=== PATIENT | female | born 1970 | race Caucasian/White ===

== ENCOUNTER 2019-12-14 14:39 | Outpatient (CLI) | payer OTHER, SELFPAY ==
--- NOTE | ~2019-12-14 | MM_ITS ---
EXAMINATION: MM screening [facility] BI w ari HISTORY: Screening mammogram TECHNIQUE: Craniocaudal and mediolateral oblique 3-D tomosynthesis images were obtained and synthetic 2-D images were generated. CAD analysis was submitted and interpreted. COMPARISON: 06/25/2018, 01/17/2016, 08/17/2014 BREAST PARENCHYMAL COMPOSITION: There are scattered areas of fibroglandular density. FINDINGS: RIGHT BREAST: There is no evidence of suspicious mass, calcification, or architectural distortion to suggest malignancy. There has been no significant interval change. LEFT BREAST: There is a possible mass of the lower-outer breast best appreciated in the posterior thi rd of the breast 12 cm from the nipple on craniocaudal tomosynthesis image 17/80. IMPRESSION: 1. Possible left breast mass. 2. Additional mammographic views and possible breast ultrasound are recommended. BI-RADS Category 0: Incomplete: Needs additional imaging evaluation. Reviewed, dictated and finalized at location A. STITCH BINDER IMPRESSION: 1. Possible left breast mass. 2. Additional mammographic views and possible breast ultrasound are recommended . BI-RADS Category 0: Incomplete: Needs additional imaging evaluation.
== END 2019-12-14 14:40 | disposition home or self-care (01) ==
DX: Z12.31 Encounter for screening mammogram for malignant neoplasm of breast (principal); R92.8 Other abnormal and inconclusive findings on diagnostic imaging of breast
CPT/HCPCS: 77063; 77067

== ENCOUNTER 2020-01-04 11:34 | Outpatient (CLI) | payer OTHER, SELFPAY ==
--- NOTE | ~2020-01-04 | MMUS_ITS ---
EXAMINATION: MM diagnostic mammo unilat LT, US breast LT limited HISTORY: Possible left breast mass on screening mammogram TECHNIQUE: Additional 3-D tomosynthesis images of the left breast were performed and synthetic 2-D im ages were generated. CAD analysis was submitted and interpreted. High resolution limited left breast ultrasound was performed. COMPARISON: 12/14/2019, 06/25/2018, 01/17/2016 FINDINGS: MAMMOGRAPHIC FINDINGS: No persistent asymmetry is identified with spot compression views of the left breast. ULTRASOUND: There is no evidence of focal abnormal solid or cystic lesion in the vicinity of the mammographic fin ding in question. IMPRESSION: 1. No mammographic or sonographic evidence of malignancy. 2. Recommend routine screening mammography in one year. BI-RADS Category 1: Negative Reviewed, dictated and finalized at location A. IMPRESSION: 1. No mammographic or sonographic evidence of malignancy. 2. Recommend routine screening mammography in one year. BI-RADS Category 1: Negative
== END 2020-01-04 11:35 | disposition home or self-care (01) ==
DX: R92.2 Inconclusive mammogram (principal)
CPT/HCPCS: 76642; 77065

== ENCOUNTER 2020-09-23 17:28 | Outpatient (CLI) | payer OTHER, SELFPAY ==
[2020-09-24 15:05] LABS: Hematocrit 44.6 % (35.0-49.0); Hemoglobin 14.4 g/dL (12.0-15.0); Mean Corpuscular HGB Conc 32.3 g/dL (32.0-36.0); Mean Corpuscular Hemoglobin 30.1 pg (27.0-31.0); Mean Corpuscular Volume 93.1 fL (78.0-102.0); Mean Platelet Volume 9.8 fl (9.2-11.8); Platelet Count Result 272 K/mm3 (150-420); Red Blood Count 4.79 M/mm3 (4.20-5.40); Red Cell Distribution Width 12.8 % (11.6-14.4); White Blood Count 7.8 K/mm3 (4.8-10.8)
[2020-09-24 15:51] LABS: Alanine Aminotransferase 25 U/L (14-59); Albumin Level 4.1 g/dL (3.4-5.0); Alkaline Phosphatase 103 U/L (46-116); Anion Gap 10 mmol/L (8-16); Aspartate Amino Transferase 17 U/L (15-37); Bilirubin,Total 0.2 mg/dL (0.00-1.00); Blood Urea Nitrogen 17 mg/dL (7-18); Calcium 8.9 mg/dL (8.5-10.1); Carbon Dioxide 28 mmol/L (21-32); Chloride 105 mmol/L (98-108); Cholesterol 287 mg/dL (0-200); Estimated Glomerular Filt Rate > 60; Glucose 83 mg/dL (70-99); HDL Direct 88 mg/dL (40-60); LDL Cholesterol Calculated 173 mg/dL (<130); Osmolality Calculated 296 mOsm/kg (285-295); Potassium 4.2 mmol/L (3.5-5.1); Sodium 143 mmol/L (136-145); Total Protein 7.1 g/dL (6.4-8.2); Triglycerides 131 mg/dL (0-150)
[2020-09-24 15:55] LABS: Thyroid Stimulating Hormone Reflex 5.25 u/IU/mL (0.36-3.74)
[2020-09-24 16:28] LABS: Free T4 Free Thyroxine Reflex 0.71 ng/dL (0.76-1.46)
== END 2020-09-23 17:29 | disposition home or self-care (01) ==
LOC: CHSLAB 17:33
PROVIDERS: Visit Provider Family Medicine
DX: E03.9 Hypothyroidism, unspecified (principal)
CPT/HCPCS: 36415; 80053; 80061; 84439; 84443; 85027

== ENCOUNTER 2021-01-19 14:28 | Outpatient (CLI) | payer OTHER, SELFPAY ==
--- NOTE | ~2021-01-19 | MM_ITS ---
EXAMINATION: MM screening [facility] BI w ari HISTORY: Screening mammogram TECHNIQUE: Craniocaudal and mediolateral oblique 3-D tomosynthesis images were obtained and synthetic 2-D images were generated. CAD analysis was submitted and interpreted. COMPARISON: 01/04/2020, 12/14/2019, 06/25/2018 BREAST PARENCHYMAL COMPOSITION: There are scattered areas of fibroglandular density. FINDINGS: There is no evidence of suspicious mass, calcification, or architectural distortion to sugg est malignancy in either breast. There has been no suspicious interval change. IMPRESSION: 1. No mammographic evidence of malignancy. 2. Recommend routine screening mammography in one year. BI-RADS Category 1: Negative Reviewed, dictated and finalized at location A.
== END 2021-01-19 14:29 | disposition home or self-care (01) ==
LOC: ANHIMG 14:32
PROVIDERS: PCP Family Medicine; Visit Provider Obstetrics & Gynecology
DX: Z12.31 Encounter for screening mammogram for malignant neoplasm of breast (principal)
CPT/HCPCS: 77063; 77067

== ENCOUNTER 2021-06-27 14:08 | Outpatient (CLI) | payer OTHER, SELFPAY ==
[2021-06-27 14:19] LABS: Hematocrit 44.5 % (35.0-49.0); Hemoglobin 14.4 g/dL (12.0-15.0); Mean Corpuscular HGB Conc 32.4 g/dL (32.0-36.0); Mean Corpuscular Hemoglobin 29.6 pg (27.0-31.0); Mean Corpuscular Volume 91.4 fL (78.0-102.0); Mean Platelet Volume 9.6 fl (9.2-11.8); Platelet Count Result 269 K/mm3 (150-420); Red Blood Count 4.87 M/mm3 (4.20-5.40); Red Cell Distribution Width 12.9 % (11.6-14.4); White Blood Count 7.9 K/mm3 (4.8-10.8)
[2021-06-27 14:57] LABS: Alanine Aminotransferase 33 U/L (14-59); Albumin Level 4.2 g/dL (3.4-5.0); Alkaline Phosphatase 108 U/L (46-116); Anion Gap 6 mmol/L (8-16); Aspartate Amino Transferase 12 U/L (15-37); Bilirubin,Total 0.3 mg/dL (0.00-1.00); Blood Urea Nitrogen 17 mg/dL (7-18); Calcium 8.7 mg/dL (8.5-10.1); Carbon Dioxide 30 mmol/L (21-32); Chloride 106 mmol/L (98-108); Estimated Glomerular Filt Rate 47; Glucose 95 mg/dL (70-99); Osmolality Calculated 295 mOsm/kg (285-295); Potassium 3.9 mmol/L (3.5-5.1); Sodium 142 mmol/L (136-145); Total Protein 7.6 g/dL (6.4-8.2)
[2021-06-27 15:01] LABS: Free T4 Free Thyroxine Reflex 0.92 ng/dL (0.76-1.46); Thyroid Stimulating Hormone Reflex 6.27 u/IU/mL (0.36-3.74)
== END 2021-06-27 14:09 | disposition home or self-care (01) ==
LOC: CHSLAB 14:10
PROVIDERS: PCP Family Medicine; Visit Provider Family Medicine
DX: E03.9 Hypothyroidism, unspecified (principal); E11.9 Type 2 diabetes mellitus without complications
CPT/HCPCS: 36415; 80053; 84439; 84443; 85027

== ENCOUNTER 2022-01-30 11:42 | Outpatient (CLI) | payer OTHER, SELFPAY ==
--- NOTE | ~2022-01-30 | MM_ITS ---
EXAMINATION: MM screening [facility] BI w ari HISTORY: Screening TECHNIQUE: Craniocaudal and mediolateral oblique 3-D tomosynthesis images were obtained and synthetic 2-D images were generated. CAD analysis was submitted and interpreted. COMPARISON: Comparison to multiple prior studies sequentially, with oldest reviewed study dated 07/28. BREAST PARENCHYMAL COMPOSITION: Breast composition is almost entirely fatty FINDINGS: There is no evidence of suspicious mass, calcification, or architectural distortion to sugg est malignancy in either breast. There has been no suspicious interval change. IMPRESSION: 1. No mammographic evidence of malignancy. 2. Recommend routine screening mammography in one year. BI-RADS Category 1: Negative Reviewed, dictated and finalized at location A.
== END 2022-01-30 11:43 | disposition home or self-care (01) ==
LOC: CHSIMG 11:44
PROVIDERS: PCP Family Medicine; Visit Provider Family Medicine
DX: Z12.31 Encounter for screening mammogram for malignant neoplasm of breast (principal)
CPT/HCPCS: 77063; 77067

== ENCOUNTER 2022-02-14 07:25 | Outpatient (CLI) | payer OTHER, SELFPAY ==
[2022-02-14 08:10] LABS: Hematocrit 41.5 % (35.0-49.0); Hemoglobin 13.2 g/dL (12.0-15.0); Mean Corpuscular HGB Conc 31.8 g/dL (32.0-36.0); Mean Corpuscular Hemoglobin 29.1 pg (27.0-31.0); Mean Corpuscular Volume 91.6 fL (78.0-102.0); Mean Platelet Volume 9.5 fl (9.2-11.8); Platelet Count Result 252 K/mm3 (150-420); Red Blood Count 4.53 M/mm3 (4.20-5.40); White Blood Count 6.8 K/mm3 (4.8-10.8)
[2022-02-14 09:09] LABS: Alanine Aminotransferase 31 U/L (14-59); Alkaline Phosphatase 81 U/L (46-116); Anion Gap 7 mmol/L (8-16); Aspartate Amino Transferase 17 U/L (15-37); Bilirubin,Total 0.3 mg/dL (0.00-1.00); Blood Urea Nitrogen 16 mg/dL (7-18); Calcium 8.9 mg/dL (8.5-10.1); Carbon Dioxide 29 mmol/L (21-32); Chloride 105 mmol/L (98-108); Cholesterol 260 mg/dL (0-200); Estimated Glomerular Filt Rate 59; Glucose 94 mg/dL (70-99); HDL Direct 81 mg/dL (40-60); LDL Cholesterol Calculated 168 mg/dL (<130); Osmolality Calculated 293 mOsm/kg (285-295); Potassium 4.3 mmol/L (3.5-5.1); Sodium 141 mmol/L (136-145); Total Protein 6.7 g/dL (6.4-8.2); Triglycerides 57 mg/dL (0-150)
[2022-02-14 10:04] LABS: Thyroid Stimulating Hormone Reflex 5.28 u/IU/mL (0.36-3.74)
[2022-02-14 10:05] LABS: Free T4 Free Thyroxine Reflex 0.95 ng/dL (0.76-1.46)
== END 2022-02-14 07:26 | disposition home or self-care (01) ==
LOC: CHSLAB 07:28
PROVIDERS: PCP Family Medicine; Visit Provider Family Medicine
DX: E03.9 Hypothyroidism, unspecified (principal); Z68.34 Body mass index [BMI] 34.0-34.9, adult; E11.9 Type 2 diabetes mellitus without complications
CPT/HCPCS: 36415; 80053; 80061; 84439; 84443; 85027

== ENCOUNTER 2022-04-20 18:16 | Outpatient (CLI) | payer OTHER, SELFPAY ==
[2022-04-20 18:48] LABS: Amphetamine Screen Urine Negative (Negative); Barbiturate Screen Urine Negative (Negative); Benzodiazepines Screen Urine Negative (Negative); Cannabinoid Screen Urine Negative (Negative); Cocaine Screen Urine Negative (Negative); Methadone Screen Urine Negative (Negative); Opiate Screen Urine Negative (Negative); Phencyclidine Screen Urine Negative (Negative)
[2022-04-23 21:55] LABS: Varicella IgM Antibody <=0.90 (<=0.90)
== END 2022-04-20 18:17 | disposition home or self-care (01) ==
LOC: CHSLAB 18:18
PROVIDERS: PCP Family Medicine; Visit Provider Emergency Medicine
DX: Z02.1 Encounter for pre-employment examination (principal)
CPT/HCPCS: 36415; 80307; 86787

== ENCOUNTER 2023-02-17 07:31 | Outpatient (CLI) | payer OTHER, SELFPAY ==
--- NOTE | ~2023-02-17 | MM_ITS ---
EXAMINATION: MM screening [facility] BI w ari HISTORY: Screening mammogram TECHNIQUE: Craniocaudal and mediolateral oblique 3-D tomosynthesis images were obtained and synthetic 2-D images were generated. CAD analysis was submitted and interpreted. COMPARISON: January 30, 2022, January 19, 2021 bilateral screening mammogram examinations BREAST PARENCHYMAL COMPOSITION: There are scattered areas of fibroglandular FINDINGS: There is no evidence of suspicious mass, calcification, or architectural distortion to sugg est malignancy in either breast. There has been no suspicious interval change. IMPRESSION: 1. No mammographic evidence of malignancy. 2. Recommend routine screening mammography in one year. BI-RADS Category 1: Negative Reviewed, dictated and finalized at location A.
== END 2023-02-17 07:32 | disposition home or self-care (01) ==
LOC: CHSLAB 07:32
PROVIDERS: PCP Family Medicine; Visit Provider Family Medicine
DX: Z12.31 Encounter for screening mammogram for malignant neoplasm of breast (principal)
CPT/HCPCS: 77063; 77067

== ENCOUNTER 2023-02-26 15:53 | Outpatient (CLI) | payer OTHER, SELFPAY ==
[2023-02-26 16:16] LABS: Glucose Point of Care 101 mg/dl (65-105)
[2023-02-26 16:21] LABS: Glucose Point of Care 101 mg/dl (65-105)
[2023-02-26 16:42] LABS: Glucose Point of Care 157 mg/dl (65-105)
[2023-02-26 17:03] LABS: Basophils Absolute Auto 0.04 K/mm3 (0.00-0.10); Basophils Percent Auto 0.6 % (0.0-1.0); Eosinophils Absolute Auto 0.34 K/mm3 (0.02-0.50); Eosinophils Percent Auto 4.9 % (1.0-6.0); Hematocrit 40.4 % (35.0-49.0); Hemoglobin 13.1 g/dL (12.0-15.0); Immature Granulocyte Absolute 0.02 K/mm3 (0.00-0.00); Immature Granulocyte Percent A 0.3 % (0.0-0.0); Lymphocytes Absolute Auto 1.94 K/mm3 (1.10-4.50); Lymphocytes Percent Auto 28.1 % (18.0-42.0); Mean Corpuscular HGB Conc 32.4 g/dL (32.0-36.0); Mean Corpuscular Hemoglobin 29.9 pg (27.0-31.0); Mean Corpuscular Volume 92.2 fL (78.0-102.0); Mean Platelet Volume 10.5 fl (9.2-11.8); Monocytes Absolute Auto 0.37 K/mm3 (0.10-0.90); Monocytes Percent Auto 5.4 % (2.0-11.0); Neutrophils Absolute Auto 4.2 K/mm3 (1.7-7.2); Neutrophils Percent Auto 60.7 % (50.0-70.0); Platelet Count Result 231 K/mm3 (150-420); Red Blood Count 4.38 M/mm3 (4.20-5.40); Red Cell Distribution Width 12.7 % (11.6-14.4); White Blood Count 6.9 K/mm3 (4.8-10.8)
[2023-02-26 17:17] LABS: Hemoglobin A1C 5.8 % (<5.7)
[2023-02-26 17:42] LABS: Alanine Aminotransferase 29 U/L (14-59); Albumin Level 3.7 g/dL (3.4-5.0); Alkaline Phosphatase 111 U/L (46-116); Anion Gap 10 mmol/L (8-16); Aspartate Amino Transferase 23 U/L (15-37); Bilirubin,Total 0.2 mg/dL (0.00-1.00); Blood Urea Nitrogen 18 mg/dL (7-18); Calcium 8.6 mg/dL (8.5-10.1); Carbon Dioxide 27 mmol/L (21-32); Chloride 107 mmol/L (98-108); Cholesterol 239 mg/dL (0-200); Estimated Glomerular Filt Rate 57; Glucose 113 mg/dL (70-99); HDL Direct 84 mg/dL (40-60); LDL Cholesterol Calculated 138 mg/dL (<130); Osmolality Calculated 300 mOsm/kg (285-295); Potassium 3.7 mmol/L (3.5-5.1); Sodium 144 mmol/L (136-145); Total Protein 6.8 g/dL (6.4-8.2); Triglycerides 84 mg/dL (0-150)
== END 2023-02-26 15:54 | disposition home or self-care (01) ==
PROVIDERS: PCP Family Medicine; Visit Provider Family Medicine
DX: E03.9 Hypothyroidism, unspecified (principal); E78.5 Hyperlipidemia, unspecified
CPT/HCPCS: 36415; 80053; 80061; 82948; 83036; 84443; 85025

== ENCOUNTER 2023-07-12 07:00 | Outpatient (CLI) | payer OTHER, SELFPAY ==
[2023-07-12 07:27] LABS: Hemoglobin A1C 6.3 % (<5.7)
[2023-07-12 07:40] LABS: Glucose 107 mg/dL (70-99)
== END 2023-07-12 07:01 | disposition home or self-care (01) ==
LOC: CHSLAB 07:02
PROVIDERS: PCP Family Medicine; Visit Provider Nurse Practitioner Family
DX: R73.09 Other abnormal glucose (principal)
CPT/HCPCS: 36415; 82947; 83036

== ENCOUNTER 2024-02-12 12:50 | Outpatient (CLI) | payer OTHER, SELFPAY ==
--- NOTE | ~2024-02-12 | MM_ITS ---
EXAMINATION: MM screening [facility] BI w ari HISTORY: Screening TECHNIQUE: Craniocaudal and mediolateral oblique 3-D tomosynthesis images were obtained and synthetic 2-D images were generated. CAD analysis was submitted and interpreted. COMPARISON: Comparison to multiple prior studies sequentially, with oldest reviewed study dated 01/19. BREAST PARENCHYMAL COMPOSITION: Not dense: There are scattered areas of fibroglandular density. FINDINGS: There is no evidence of suspicious mass, calcification, or architectural distortion to sugg est malignancy in either breast. There has been no suspicious interval change. IMPRESSION: 1. No mammographic evidence of malignancy. 2. Recommend routine screening mammography in one year. BI-RADS Category 1: Negative Reviewed, dictated and finalized at location B.
== END 2024-02-12 12:51 | disposition home or self-care (01) ==
LOC: CHSIMG 12:53
PROVIDERS: PCP Family Medicine; Visit Provider Obstetrics & Gynecology
DX: Z12.31 Encounter for screening mammogram for malignant neoplasm of breast (principal)
CPT/HCPCS: 77063; 77067

== ENCOUNTER 2025-02-24 06:38 | Outpatient (CLI) | payer OTHER, SELFPAY ==
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
--- OUTSIDE RECORDS SUMMARY | 2025-02-24 06:41 | XMS_ITS | Clinical Summary ---
Author Organization [facility] 2 Address [address] [place] [address] Care Team Providers Care Shoulder Joiner Name Role Phone Uziel Alves DO Primary Care Provider + Allergies Active Allergy Reactions Criticality Noted Date Comments Erythromycin Other (See comments) Reaction: N&V, Penicillins Rash Reaction: RASH Medications levothyroxine (SYNTHROID) 25 mcg tablet 9 Active fluticasone propion-salmeter oL (Advair Diskus) 250-50 mcg/dose diskus inhalerIndicatio ns:Mild intermittent asthma without complication Inhale 1 puff 2 (two) times a day Rinse mouth with water after use. Do not swallow. 60 each 3 0 Active Additional Information Patient not taking.Reported on 01/14/2022 albuterol HFA (Ventolin HFA) 90 mcg/actuation inhalerIndicatio ns:Mild intermittent asthma without complication Inhale 2 puffs every 4 (four) hours as needed for wheezing or shortness of breath 54 g 3 0 Active Additional Information Patient not taking.Reported on 02/23/2024 budesonide-glyco pyr-formoterol (Breztri Aerosphere) 160-9-4.8 mcg/actuation HFA aerosol inhaler Active atorvastatin (LIPITOR) 10 mg tablet 3 Active levothyroxine (SYNTHROID) 75 mcg tablet 3 Active montelukast (SINGULAIR) 10 mg tablet Active Active Problems Problem Noted Date Diagnosed Date Hypothyroidism 12/09/2019 Obesity (BMI 30-39.9) 12/09/2019 Asthma 07/15/2018 Mild intermittent asthma without complication Assessment & Plan (07/19/2020 11:41 AM CDT): I will give the patient 2 samples of Symbicort 160/4.5 to use 2 puffs b.i.d.. Otherwise, I have refilled the Advair and the albuterol for her. She will return to the office in 1 year. Assessment & Plan (07/14/2019 1:18 PM CDT): Patient continues to use Zyrtec. Surgical History Surgery Date Site/Laterality Comments SECTION 10/27/2006 - 10/26/2007 PILONIDAL CYSTECTOMY 10/27/1996 - 10/26/1997 ESSURE TUBAL LIGATION 10/27/2014 - 10/26/2015 URETHRAL SLING 10/27/2012 - 10/26/2013 Medical History Medical History Date Comments Asthma Abnormal Pap smear of cervix 2006 HPV s/p biopsy. Negative since Family History Medical History Relation Name Comments Hypertension Father Melanoma Father Diabetes Maternal Grandmother Relation Name Status Comments Father Alive Maternal Grandmother Mother Alive Social History Tobacco Use Types Packs/Day Years Used Date Smoking Tobacco: Never Smokeless Tobacco: Never Tobacco Cessation:Counseling Given: Not Answered Alcohol Use Standard Drinks/Week Comments Yes 2 (1 standard drink = 0.6 oz pur e alcohol) 2 X MONTH Personal Safety Answer Date Recorded Getting School Help Needed Not on file 12/21 Comments No Sex and Gender Information Value Date Recorded Sex Assigned at Not on file Legal Sex Female 7:02 PM ORNAMENT STITCHER Gender Identity Female 11/22/2018 9:04 PM ORNAMENT STITCHER Sexual Orientation Not on file Occupation Industry Job Start Date Job End Date RN Not on file Not on file Not on file Obstetrics History Para Term AB IAB SAB Ectopic Multiple Livin g Live Births 2 2 2 0 0 2 2 Date Outcome GA Total Labor Labor/2nd/3rd Weight Sex Type Anes PTL Claudia A1 A5 Name Clin 1997 Term 3.459 kg (7 lb 10 oz) F Vag-S pont Living 2006 Term 3.033 kg (6 lb 11 oz) M CS-LT ranv Living Last Filed Vital Signs Vital Sign Reading Time Taken Comments Blood Pressure 120/82 02/23/2024 2:25 PM CDT Pulse 75 07/19/2020 11:15 AM CDT Temperature 36.2 C (97.1 F) 01/08/2021 2:35 PM CDT Respiratory Rate 16 07/19/2020 11:15 AM CDT Oxygen Saturation 97% 07/19/2020 11:15 AM CDT Inhaled Oxygen Concentration - - Weight 103.4 kg (228 lb) 02/23/2024 2:25 PM CDT Height 171.5 cm (5' 7.5 ) 02/23/2024 2:25 PM CDT Body Mass Index 35.18 02/23/2024 2:25 PM CDT Plan of Treatment Health Maintenance Due Date Last Done Comments Breast Cancer Screening-Mammogram 1968 Colon Cancer Screening-Colonoscopy 1968 Depression Screening 1968 Hepatitis C Screening 1968 DTaP/Tdap/Td Vaccine (1 - Tdap) 1979 Hepatitis B Screening 1986 Pneumococcal vaccine <65 (1 of 2 - PCV) 1987 Zoster Vaccine (1 of 2) 2018 Cervical Cancer Screening 02/22/2025 02/23/2024, Regular Well Visit/Exam 18-64 02/22/2025, 01/27/2023, 01/14/2022, Additional history exists Influenza Vaccine (Season Ended) 2025 Procedures Procedure Name Priority Date/Time Associated Diagnosis Comments HIGH RISK HPV DNA DETECTION WITH GENOTYPING Routine 02/23/2024 3:46 PM CDT Screening for malignant neoplasm of the cervix from Last 3 Months or Most Recently Relevant to Health Maintenance Results * High Risk HPV DNA Detection with Genotyping (Molecular component) (02/23/2024 3:46 PM CDT) HPV HR 16 Not Detected Not Detected [facility] Comment:Testing performed by : [facility], [address] [place]., [address] HPV HR 18 Not Detected Not Detected [facility] Comment:Testing performed by : [facility], [address] [place]., [address] HPV HR Non 16/18 Not Detected Not Detected [facility] Comment: Interpretive Data Nucleic acid amplification for detection of high-risk Human Papilloma virus (HPV) is performed by the Jack Charles 6800 HPV test. This assay specifically detects HPV-16 and HPV-18 genotypes. The following HPV genotypes are detected as high-risk HPV: HPV-31, 33, 35, ,39, 45, 51, 52, 56, 58, 59, 66, and 68. This assay has been approved by the [place] Food and Drug Administration for detection of HPV in cervical specimens collected by a physician using an endocervical brush/spatula or cervical broom and placed in the ThinPrep Pap Test PreservCyt collection containers. The performance characteristics of this test have been verified by the [facility] Molecular Infectious Disease laboratory. Correlate with separately reported cytology results, as applicable. Interpretive data last revised 23 Testing performed by: [facility], [address] [place]., [address] Endocervical 02/23/2024 3:46 PM CDT 02/24/2024 1:52 PM CDT Narrative [facility] - 02/25/2024 3:57 AM CDT Clinical history and diagnosis->DX Z12.4 Testing type->Screening Last menstrual period (date if known)->N/A Menstrual status->Postmenopausal Previous negative PAP?->Yes Melisas Traylor MD LAB BODY FLUIDS AND S TOOLS ORDERABLES Final Result [facility] [id number] Department [place] [address] [facility] from Last 3 Months or Most Recently Relevant to Health Maintenance Insurance [facility] [employer] Address: [address] [place] [address] [facility] Care Teams Shoulder Joiner Relationship Specialty Start Date End Date Uziel Alves DO PCP - General Family Medicine 07/26/19
--- OUTSIDE RECORDS SUMMARY | 2025-02-24 06:41 | XMS_ITS | Referral Summary ---
Author Organization [facility] 2 Address [address] [place] [address] Care Team Providers Care Improvement Manager Name Role Phone Uziel Alves DO Primary [...] PM CDT): Patient continues to use Zyrtec. Social History Tobacco Use Types Packs/Day Years [...] on file Legal Sex Female 7:02 PM SENIOR ENGINEERING TEAM LEADER Gender Identity Female 11/22/2018 9:04 PM SENIOR ENGINEERING TEAM LEADER Sexual Orientation Not on file Occupation Industry Job Start Date Job End Date RN Not on file Not on file Not on file Last Filed Vital Signs Vital Sign Reading [...] 02/23/2024 2:25 PM CDT Plan of Treatment Not on file Procedures Procedure Name Priority Date/Time Associated Diagnosis Comments HIGH RISK HPV DNA DETECTION WITH GENOTYPING Routine 02/23/2024 3:46 PM CDT Screening for malignant neoplasm of the cervix from Last 3 Months or Most Recently Relevant to Health Maintenance Results * High Risk HPV DNA Detection with Genotyping (Molecular component) (02/23/2024 3:46 PM CDT) HPV HR 16 Not Detected Not Detected [facility] Comment:Testing performed by : [facility], [address] [place]., [address] HPV HR 18 Not Detected Not Detected [facility] Comment:Testing performed by : [facility], [address] [place]., [address] HPV HR Non 16/18 Not Detected Not [...] this test have been verified by the [facility] Molecular Infectious Disease laboratory. Correlate with separately reported cytology results, as applicable. Interpretive data last revised 23 Testing performed by: [facility], [address] [place]., [address] Endocervical 02/23/2024 3:46 PM CDT 02/24/2024 1:52 PM CDT Narrative [facility] - 02/25/2024 3:57 AM CDT Clinical history and diagnosis->DX Z12.4 Testing type->Screening Last menstrual period (date if known)->N/A Menstrual status->Postmenopausal Previous negative PAP?->Yes Melissa Traylor MD LAB BODY FLUIDS AND S TOOLS ORDERABLES Final Result [facility] [address] [place] [address] [facility] from Last 3 Months or Most Recently Relevant to Health Maintenance Insurance [facility] [facility] PLANS Address: [facility] [address] [place] [address] [facility] Care Teams Improvement Manager Relationship Specialty Start Date End Date Uziel Alves DO PCP - General Family Medicine 07/26/19
[2025-02-24 07:01] LABS: Basophils Absolute Auto 0.05 K/mm3 (0.00-0.10); Basophils Percent Auto 0.7 % (0.0-1.0); Eosinophils Absolute Auto 0.55 K/mm3 (0.02-0.50); Eosinophils Percent Auto 7.5 % (1.0-6.0); Hematocrit 42.3 % (35.0-49.0); Hemoglobin 13.3 g/dL (12.0-15.0); Immature Granulocyte Absolute 0.02 K/mm3 (0.00-0.00); Immature Granulocyte Percent A 0.3 % (0.0-0.0); Lymphocytes Absolute Auto 2.51 K/mm3 (1.10-4.50); Mean Corpuscular HGB Conc 31.4 g/dL (32-36); Mean Corpuscular Hemoglobin 28.3 pg (27.0-31.0); Mean Platelet Volume 9.6 fl (9.2-11.8); Monocytes Absolute Auto 0.53 K/mm3 (0.10-0.90); Monocytes Percent Auto 7.2 % (2.0-11.0); Neutrophils Absolute Auto 3.72 K/mm3 (1.70-7.20); Neutrophils Percent Auto 50.3 % (50.0-70.0); Platelet Count Result 260 K/mm3 (150-420); White Blood Count 7.4 K/mm3 (4.8-10.8)
[2025-02-25 02:21] LABS: Hemoglobin A1C 5.9 % (<5.7)
[2025-02-25 02:52] LABS: Alanine Aminotransferase 22 U/L (14-59); Albumin Level 3.8 g/dL (3.4-5.0); Alkaline Phosphatase 113 U/L (46-116); Anion Gap 7 mmol/L (4-12); Aspartate Amino Transferase 14 U/L (15-37); Bilirubin,Total 0.3 mg/dL (0.00-1.00); Blood Urea Nitrogen 18 mg/dL (7-18); Calcium 8.6 mg/dL (8.5-10.1); Carbon Dioxide 29 mmol/L (21-32); Chloride 106 mmol/L (98-108); Cholesterol 248 mg/dL (0-200); Estimated Glomerular Filt Rate 59; Glucose 80 mg/dL (70-99); HDL Direct 83 mg/dL (40-60); LDL Cholesterol Calculated 148 mg/dL (<130); Osmolality Calculated 294 mOsm/kg (285-295); Potassium 4.7 mmol/L (3.5-5.1); Sodium 142 mmol/L (136-145); Total Protein 6.5 g/dL (6.4-8.2); Triglycerides 84 mg/dL (0-150)
[2025-02-25 03:56] LABS: Thyroid Stimulating Hormone Reflex 8.34 u/IU/mL (0.36-3.74)
[2025-02-26 12:09] LABS: Lipoprotein A 211 nmol/L
[2025-02-28 07:08] LABS: Apolipoprotein B 101 mg/dL
== END 2025-02-24 06:39 | disposition home or self-care (01) ==
PROVIDERS: PCP Family Medicine; Visit Provider Family Medicine
DX: E78.5 Hyperlipidemia, unspecified (principal); E11.9 Type 2 diabetes mellitus without complications; E03.9 Hypothyroidism, unspecified
CPT/HCPCS: 36415; 80053; 80061; 82172; 83036; 83695; 84439; 84443; 85025

== ENCOUNTER 2025-03-10 07:46 | Outpatient (CLI) | payer OTHER, SELFPAY ==
--- NOTE | ~2025-03-10 | MM_ITS ---
EXAMINATION: MM screening ibeth BI w ari HISTORY: Screening TECHNIQUE: Craniocaudal and mediolateral oblique 3-D tomosynthesis images were obtained and synthetic 2-D images were generated. CAD analysis was submitted and interpreted. COMPARISON: Comparison to multiple prior studies sequentially, with oldest reviewed study dated 12/14. BREAST PARENCHYMAL COMPOSITION: Not dense: There are scattered areas of fibroglandular density. FINDINGS: There is no evidence of suspicious mass, calcification, or architectural distortion to sugg est malignancy in either breast. There has been no suspicious interval change. IMPRESSION: 1. No mammographic evidence of malignancy. 2. Recommend routine screening mammography in one year. BI-RADS Category 1: Negative Reviewed, dictated and finalized at location A.
--- OUTSIDE RECORDS SUMMARY | 2025-03-10 07:50 | XMS_ITS | Referral Summary ---
Author Organization [facility] 2 Address [address] [place] [address] Care Team Providers Care Instrumental Musician Name Role Phone Uziel Alves DO Primary [...] on file Legal Sex Female 7:02 PM HEAD OF GEOGRAPHY Gender Identity Female 11/22/2018 9:04 PM HEAD OF GEOGRAPHY Sexual Orientation Not on file Occupation Industry [...] HPV HR 16 Not Detected Not Detected [facility] Comment:Testing performed by : [facility], [address] [place]., [address] HPV HR 18 Not Detected Not Detected [facility] Comment:Testing performed by : [facility], [address] [place]., [address] HPV HR Non 16/18 Not Detected Not [...] this test have been verified by the [facility] Molecular Infectious Disease laboratory. Correlate with separately reported cytology results, as applicable. Interpretive data last revised 23 Testing performed by: [facility], [address] [place]., [address] Endocervical 02/23/2024 3:46 PM CDT 02/24/2024 1:52 PM CDT Narrative [facility] - 02/25/2024 3:57 AM CDT Clinical history and diagnosis->DX Z12.4 Testing type->Screening Last menstrual period (date if known)->N/A Menstrual status->Postmenopausal Previous negative PAP?->Yes Melissa Traylor MD LAB BODY FLUIDS AND S TOOLS ORDERABLES Final Result [facility] [address] Department [place] [address] [facility] from Last 3 Months or Most Recently Relevant to Health Maintenance Insurance [facility] Care Teams Instrumental Musician Relationship Specialty Start Date End Date Uziel Alves DO PCP - General Family Medicine 07/26/19
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
--- OUTSIDE RECORDS SUMMARY | 2025-03-10 07:50 | XMS_ITS | Clinical Summary ---
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 Correlate with separately reported cytology results, as applicable. Interpretive data last revised 23 Testing performed by: [facility], [address] [place]., [address] Endocervical 02/23/2024 3:46 PM CDT 02/24/2024 1:52 PM CDT Narrative [facility] - 02/25/2024 3:57 AM CDT Clinical history and diagnosis->DX Z12.4 Testing type->Screening Last menstrual period (date if known)->N/A Menstrual status->Postmenopausal Previous negative PAP?->Yes Melissa Traylor MD LAB BODY FLUIDS AND S TOOLS ORDERABLES Final Result [facility] [address] Department [place] [address] [facility] from Last 3 Months or Most Recently Relevant to Health Maintenance Insurance [facility] HMO/PPO Address: [address] [address] [place] [address] [facility] [employer] Address: [address] [place] [address] [facility] HMO/PPO Address: [address] [address] [place] [address] Care Teams Wooden Tank Erector Relationship Specialty Start Date End Date Uziel Alves DO PCP - General Family Medicine 07/26/19
== END 2025-03-10 07:47 | disposition home or self-care (01) ==
LOC: CHSIMG 07:47
PROVIDERS: PCP Family Medicine; Visit Provider Family Medicine
DX: Z12.31 Encounter for screening mammogram for malignant neoplasm of breast (principal)
CPT/HCPCS: 77063; 77067